=== PATIENT | male | born 1975 | race Caucasian/White ===

== ENCOUNTER → 2018-03-03 | Outpatient (CLI) | payer OTHER | LOC: M.ULTRA 09:53 | DX: M77.32 Calcaneal spur, left foot (principal); M25.561 Pain in right knee; M79.89 Other specified soft tissue disorders ==

== ENCOUNTER → 2018-03-10 | Outpatient (CLI) | payer OTHER | LOC: M.ULTRA 08:00 | DX: M79.604 Pain in right leg (principal); R60.0 Localized edema ==